=== PATIENT | female | born 1995 | race Caucasian/White ===

== ENCOUNTER 2021-01-18 13:05 | Emergency (ER) | payer SELFPAY ==
[~2021-01-18] VITALS: Ht 170 cm; Wt 61.0 kg
--- OUTSIDE RECORDS SUMMARY | 2021-01-18 13:13 | XMS REPORT | Clinical Summary ---
Author Author [facility] Address Unknown Phone Unavailable Care Team Providers Care [employer] Name Role Phone PCP Unavailable Allergies No known active allergies Medications End Date Status Medication Sig Dispensed Refills Start Date Active multivitamin take 1 tablet 90 3 ( PLUS) 27-1 MG by oral route 3 TABS every day Status Hospital, Clinic, or Ordered Dose Route Frequency Start End Date Other Facility Date Administered Medication Active etonogestrel (NEXPLANON) 1 each SC CONTINUOUS 0 03/30/19 68 MG implant 1 17 eachIndications: Nexplanon insertion, Encounter for initial prescription of implantable subdermal contraceptive Active Problems Patient Care Coordination Note MFM: Dr Coles appt pending lung mass No known active problems Family History Medical History Relation Name Comments Other Other Family History Comm ents - No family history of breast, ovary, endometrial or colon can cer. 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 Weight 163.8 cm (5' 4.5") 09/03/2012 8:00 AM CDT Height 22.68 09/03/2012 8:00 AM CDT Body Mass Index Plan of Treatment Health Maintenance Due Date Last Done Comments COVID-19 Vaccine (1) 2005 DTaP,Tdap,and Td Vaccines 2012 (1 - Tdap) MMR Vaccines-Adult 2012 Cervical Cancer Screening 03/30/2019 03/30/2016, 08/12/2015, 02/27/2012 Influenza Vaccine (#1) 2020 Pneumo-Vaccine: 65+Yrs (1 2058 of 1 - PPSV23) Hepatitis C Screening Completed 08/12/2015 HIB Vaccines Aged Out No longer eligible based on patient's age to complete this topic IPV Vaccines Aged Out No longer eligible based on patient's age to complete this topic Meningococcal Vaccine Aged Out No longer eligib le based on patient's age to complete this topic Pneumo-Vaccine: Peds (0-5 Aged Out No longer el igible based on patient's age to Yrs) & At-Risk Patients complete this topic (6-64 Yrs) Rotavirus Vaccines Aged Out No longer eligible based on patient's age to complete this topic Results Not on filefrom Last 3 Months Insurance Type Payer Benefit Subscriber ID Effective Phone Address Plan / Dates Group [id number] 2015-P [phone] [address] [place] [facility] [address] [place] [address] Advance Directives For more information, please contact: [phone] 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
[2021-01-18 13:15] VITALS: BP 108/71
--- NOTE | 2021-01-18 13:37 | ED Abdominal Pain ---
General Chief Complaint: OB < 20 WEEKS Stated Complaint: ULTRASOUND 10 WEEKS PREG Nursing Triage Note: ARRIVED VIA AMB FROM [facility]. COMPLAINS OF UPPER ABD PAIN AND SPOTTING X2 WEEKS. POSITIVE PREG TEST. Source of Information: Patient Exam Limitations: No Limitations History of Present Illness Date Seen by Provider: Jan 18, 2021 Time Seen by Provider: 13:34 Initial Comments Patient is a 25-year-old female who is who presents ED with abdominal pain, vomiting and . Patient states she was seen at [place] [facility] earlier today diagnosed with . Was recommended come to ED for ultrasounds. She states she is woke up with this upper abdominal discomfort. She states she has been intermittently vomiting over the past few weeks. She she started vomiting darkish content last night. Patient with associated diarrhea. Patient denies of any radiating pain. She states she had lower abdominal discomfort when the ER physician palpate her lower abdomen. She denies any urinary symptoms, vaginal discharge. She reports intermittent vaginal spotting over the past 2 weeks described as bright red blood. Denies of any issues with her previous pregnancies. Patient diagnosed with bacterial vaginosis. Patient states she has not been able to eat today. Denies chest pain, shortness of breath, cough, headache, dizziness. Allergies and Home Medications Patient Home Medication List Home Medication List Reviewed: Yes Metronidazole (Metronidazole) 250 Mg Tablet, 250 MG PO TID Prescribed by: ISRAEL FUNES on 01/18/21 1518 Review of Systems Review of Systems Constitutional: No chills, No diaphoresis, No dizziness, No fever EENTM: No Blurred Vision Respiratory: Denies Cough, Denies Shortness of Air Cardiovascular: Denies Chest Pain, Denies Edema, Denies Irregular Heart Rate Gastrointestinal: Abdominal Pain; Denies Constipated; Diarrhea, Vomiting Genitourinary: Denies Discharge, Denies Drainage, Denies Frequency, Denies Flank Pain; Other (Vaginal bleeding) Musculoskeletal: No back pain, No gout, No joint pain, No joint swelling, No muscle stiffness Skin: No change in color, No change in hair/nails, No dryness, No hx of skin cancer Psychiatric/Neurological: Denies Anxiety, Denies Depressed All Other Systems Reviewed Negative Unless Noted: Yes Past Vgxhazc-Btwrit-Vnonow Hx Patient Social History Smoking Status: Current Everyday Smoker Substance use?: Yes Substance type: Marijuana Alcohol Use?: No Past Medical History Last Menstrual Period: Nov 04, 2020 Physical Exam Vital Signs Vital Signs - First Documented 01/18/21 13:15 Temp 36.3 Pulse 69 Resp 16 B/P (MAP) 108/71 (83) Pulse Ox 100 O2 Delivery Room Air Capillary Refill : Less Than 3 Seconds Height/Weight/BMI Height: '" Weight: lbs. oz. kg; 21.00 BMI Method: General Appearance: WD/WN, no apparent distress HEENT: PERRL/EOMI, normal ENT inspection, TMs normal Neck: non-tender, full range of motion, supple Respiratory: chest non-tender, lungs clear, normal breath sounds, no respiratory distress, no accessory muscle use Cardiovascular: regular rate, rhythm, no edema, no gallop, no JVD Gastrointestinal: normal bowel sounds, soft, no organomegaly, no pulsatile mass , tenderness (Right upper quadrant tenderness on palpation. 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, no motor/sensory deficits, alert Progress/Results/Core Measures Results/Orders Lab Results Laboratory Tests Test 01/18/21 13:45 Range/Units White Blood Count 13.0 H 4.3-11.0 10^3/uL Red Blood Count 3.99 3.80-5.11 10^6/uL Hemoglobin 12.4 11.5-16.0 g/dL Hematocrit 36 35-52 % Mean Corpuscular Volume 90 80-99 fL Mean Corpuscular Hemoglobin 31 25-34 pg Mean Corpuscular Hemoglobin Concent 35 32-36 g/dL Red Cell Distribution Width 12.2 10.0-14.5 % Platelet Count 347 130-400 10^3/uL Mean Platelet Volume 9.1 9.0-12.2 fL Immature Granulocyte % (Auto) 0 % Neutrophils (%) (Auto) 72 42-75 % Lymphocytes (%) (Auto) 20 12-44 % Monocytes (%) (Auto) 5 0-12 % Eosinophils (%) (Auto) 2 0-10 % Basophils (%) (Auto) 1 0-10 % Neutrophils # (Auto) 9.4 H 1.8-7.8 10^3/uL Lymphocytes # (Auto) 2.6 1.0-4.0 10^3/uL Monocytes # (Auto) 0.6 0.0-1.0 10^3/uL Eosinophils # (Auto) 0.3 0.0-0.3 10^3/uL Basophils # (Auto) 0.1 0.0-0.1 10^3/uL Immature Granulocyte # (Auto) 0.1 0.0-0.1 10^3/uL Sodium Level 136 135-145 MMOL/L Potassium Level 4.2 3.6-5.0 MMOL/L Chloride Level 105 98-107 MMOL/L Carbon Dioxide Level 22 21-32 MMOL/L Anion Gap 9 5-14 MMOL/L Blood Urea Nitrogen 8 7-18 MG/DL Creatinine 0.66 0.60-1.30 MG/DL Estimat Glomerular Filtration Rate 107 BUN/Creatinine Ratio 12 Glucose Level 88 70-105 MG/DL Calcium Level 9.2 8.5-10.1 MG/DL Corrected Calcium 9.0 8.5-10.1 MG/DL Total Bilirubin 0.5 0.1-1.0 MG/DL Aspartate Amino Transf (AST/SGOT) 17 5-34 U/L Alanine Aminotransferase (ALT/SGPT) 12 0-55 U/L Alkaline Phosphatase 87 40-136 U/L Total Protein 6.9 6.4-8.2 GM/DL Albumin 4.2 3.2-4.5 GM/DL Lipase 10 8-78 U/L Human Chorionic Gonadotropin, Quant [id number] H <5 MIU/ML My Orders Orders - CONCEPCION BRODY Hcg,Quantitative (01/18/21 13:32) Cbc With Automated Diff (01/18/21 13:32) Comprehensive Metabolic Panel (01/18/21 13:32) Us Abdomen Limited [id number] (01/18/21 13:32) Lipase (01/18/21 13:37) Us Ob Single Fetus<14 [id number] (01/18/21 13:32) Vital Signs/I&O 01/18/21 13:15 Temp 36.3 Pulse 69 Resp 16 B/P (MAP) 108/71 (83) Pulse Ox 100 O2 Delivery Room Air Blood Pressure Mean: 83 Departure Communication (Admissions) Patient presents ED with lower abdominal pain and upper abdominal pain. Patient was seen at the ER in [place] diagnosed with and bacterial vaginosis. Patient with right upper quadrant tenderness with vomiting. She noted dark vomit yesterday. Reports dark stool. Refused pelvic exam, rectal exam for GI bleed. Beta quant near 14,000. She had a negative urinalysis and lab work at [place]. Lab work here showed slightly elevated white blood count 13,000. She does have right upper quadrant tenderness with very minimal lower abdominal tenderness. Ultrasound of the right upper quadrant negative for acute gallbladder. Ultrasound shows intrauterine without pole. No other acute abnormality. No hemorrhaging. Patient will be discharged with Flagyl for her bacterial vaginosis. She is not concerned for other sexual transmitted infection. 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 She needs recheck of beta quant in the next 2 to 3 days. If not able follow-up may return back to ED for recheck of her beta quant. She reports vaginal spotting over the past 2 weeks. Concern for threatened miscarriage.. Recommend hydration. Recommend prenatals and ADULT NURSE PRACTITIONER follow-up. Provided this and discharge. Impression Primary Impression: Threatened miscarriage Disposition: 01 HOME, SELF-CARE Condition: Stable Departure-Patient Inst. Decision time for Depature: 15:17 Referrals: NO,LOCAL PHYSICIAN (PCP) Primary Care Physician LASHAY WILLIAM DO Patient Instructions: Threatened Miscarriage (DC) Scripts Metronidazole (Metronidazole) 250 Mg Tablet 250 MG PO TID for 7 Days, #21 TAB Prov: CONCEPCION BRODY 01/18/21 Work/School Note: Family Work Note, Work Release Form Date Seen in the Emergency Department: Jan 18, 2021 Return to Work: Jan 20, 2021 Restrictions: No Restrictions CONCEPCION BRODY Jan 18, 2021 13:37
[2021-01-18 13:52] LABS: BASOPHILS # (AUTO) 0.1 10^3/uL (0.0-0.1); BASOPHILS % (AUTO) 1 % (0-10); EOSINOPHILS # (AUTO) 0.3 10^3/uL (0.0-0.3); EOSINOPHILS % (AUTO) 2 % (0-10); HEMATOCRIT 36 % (35-52); HEMOGLOBIN 12.4 g/dL (11.5-16.0); LYMPHOCYTES # (AUTO) 2.6 10^3/uL (1.0-4.0); LYMPHOCYTES % (AUTO) 20 % (12-44); MEAN CORPUSCULAR HEMOGLOBIN 31 pg (25-34); MEAN CORPUSCULAR HGB CONC 35 g/dL (32-36); MEAN CORPUSCULAR VOLUME 90 fL (80-99); MEAN PLATELET VOLUME 9.1 fL (9.0-12.2); MONOCYTES # (AUTO) 0.6 10^3/uL (0.0-1.0); MONOCYTES % (AUTO) 5 % (0-12); NEUTROPHILS # (AUTO) 9.4 10^3/uL (1.8-7.8); NEUTROPHILS % (AUTO) 72 % (42-75); PLATELET COUNT 347 10^3/uL (130-400)
[2021-01-18 14:05] LABS: ALBUMIN 4.2 GM/DL (3.2-4.5)
[2021-01-18 14:06] LABS: POTASSIUM 4.2 MMOL/L (3.6-5.0)
[2021-01-18 14:07] LABS: CALCIUM 9.2 MG/DL (8.5-10.1)
[2021-01-18 14:08] LABS: TOTAL PROTEIN 6.9 GM/DL (6.4-8.2)
[2021-01-18 14:10] LABS: BILIRUBIN,TOTAL 0.5 MG/DL (0.1-1.0)
[2021-01-18 14:12] LABS: CREATININE SERUM 0.66 MG/DL (0.60-1.30)
--- NOTE | 2021-01-18 14:47 | Diagnostic Imaging Report ---
PROCEDURE: US OB SINGLE FETUS <14 WKS. TECHNIQUE: Multiple Real-time grayscale images were obtained over the gravid uterus in various projections. INDICATION: Bleeding for 2 weeks. FINDINGS: There is an intrauterine gestational sac measuring approximately 6 weeks 5 days gestation. No pole is seen at this time. No corby-gestational sac hemorrhage is detected. Adnexa are unremarkable. No adnexal mass or free fluid is seen. IMPRESSION: There is an intrauterine gestational sac measuring 6 weeks 5 days but no evidence of a pole. This could be owing to a blighted ovum. Correlation with serial beta hCG levels and/or followup ultrasound could be performed for further evaluation. Dictated by: Dictated on workstation # [id number]
--- NOTE | 2021-01-18 15:08 | Diagnostic Imaging Report ---
PROCEDURE: US Abdomen, limited. TECHNIQUE: Multiple realtime grayscale images were obtained over the abdomen in various projections. INDICATION: Abdominal pain. The liver is upper limits of normal in size at 18 cm. No liver mass is identified. Portal vein is patent and shows normal direction of flow. Gallbladder is without stones or sludge. There is no wall thickening or biliary ductal dilatation. The pancreas is unremarkable. Aorta is nonaneurysmal. IVC is patent. Right kidney is without calculi or hydronephrosis. There is no ascites. IMPRESSION: Unremarkable right upper quadrant ultrasound. Dictated by: Dictated on workstation # [id number]
[2021-01-18] MEDS ORDERED: METR-143 PO (15:18)
== END 2021-01-18 15:34 | disposition home or self-care (01) ==
LOC: EDUNIT# 13:05 → ER 13:09
DX: O20.0 Threatened abortion (principal); F17.200 Nicotine dependence, unspecified, uncomplicated
CPT/HCPCS: 36415; 76705; 76801; 80053; 83690; 84702; 85025